=== PATIENT | male | born 1960 | race Hispanic/Latino ===

== ENCOUNTER 2018-03-30 06:41 | Day surgery (SDC) | payer MEDICARE, OTHER ==
[2018-03-29 14:55] VITALS: BMI 35.9
[2018-03-30] MEDS ORDERED: Lidocaine PF 2% (5 ml) Inj (For Cardiac Arrhy) ONE (06:57)
[2018-03-30] MEDS ORDERED: Heparin 2,000 ML IV ONE (06:58)
[2018-03-30] MEDS ORDERED: Iodixanol 320 MG/ML 100 ML BOTTLE IV ONE (06:58)
[2018-03-30] MEDS ORDERED: Iohexol 350mgl/ml 50 ML ONE (06:58)
[2018-03-30] MEDS ORDERED: Nitroglycerin 50mg in D5W 50 MG/250 ML BOTTLE IV ONE (06:58)
[2018-03-30] MEDS ORDERED: Iodixanol 320 MG/ML 200 ML BOTTLE IV ONE (06:58)
[2018-03-30] MEDS ORDERED: Phenylephrine 10 mg/ml Inj ONE (06:58)
[2018-03-30 07:10] LABS: BASO # 0.04 K/mm3 (0.0-2.0); BASO % 0.3 % (0.0-3.0); EOS # 0.2 (0.0-0.7); EOS % 1.5 % (1.5-5.0); GRAN # 6.68 (1.4-6.5); GRAN % 55.6 % (50.0-68.0); LYMPH # 3.8 (1.2-3.4); LYMPH % 31.5 % (22.0-35.0); MEAN CELL VOLUME 84.1 fl (80.0-105.0); MEAN CORPUSCULAR HEMOGLOBIN 28.6 pg (25.0-35.0); MEAN PLATELET VOLUME 10.1 fl (7.0-11.0); MONO # 1.3 (0.1-0.6); MONO % 11.1 % (1.0-6.0); RBC 5.59 10^6/uL (3.5-6.1); RED CELL DISTRIBUTION WIDTH 13.3 % (11.5-14.5)
[2018-03-30 07:15] LABS: INR 0.97; PARTIAL THROMBOPLASTIN TIME 30.7 Seconds (25.1-36.5); PROTHROMBIN TIME 11.2 SECONDS (9.4-12.5)
[2018-03-30 07:19] LABS: BLOOD UREA NITROGEN 18 mg/dL (7-21); CALCIUM 9.4 mg/dL (8.4-10.5); GFR NON-AFRICAN AMERICAN > 60; HDL CHOLESTEROL 24 mg/dL (29-60)
[2018-03-30 07:30] LABS: LDL CHOLESTEROL 65 mg/dL (0-129)
[2018-03-30 07:34] VITALS: RESP 18
[2018-03-30] MEDS ORDERED: Midazolam 2 MG/2 ML VIAL ONE ×2 (07:47→07:59)
[2018-03-30] MEDS ORDERED: Sodium Chloride 0.9% 500 ML IV SCH (09:15)
[2018-03-30] MEDS ORDERED: oxyCODONE 10 mg Immediate Release Tab PO STA (09:15)
--- NOTE | 2018-03-30 09:37 | CARDCATH ---
PROCEDURE DATE: 03/30/2018 HISTORY: The patient is a 57-year-old male who is status post coronary artery bypass surgery one year ago who has been noncompliant with cardiac risk reduction program who presents with exertional shortness of breath. A stress test revealed ischemic changes with a normal LV function. Because of this, cardiac catheterization was recommended. PROCEDURE: Left heart catheterization with coronary arteriography and left ventriculogram with SU angiogram, saphenous vein graft angiogram as well as supra-aortic valvular injection. The right femoral artery was cannulated with a 7-Italian sheath. There were no complications. I performed moderate sedation, which included the presence of an independent trained observer that assisted in monitoring the patient's level of consciousness and physiologic status. After administration of Versed and fentanyl, my intra-service time was 30 minutes. The findings on catheterization revealed a left ventricle that contracted normally. Estimated ejection fraction is 55-60%. His coronary anatomy revealed an occluded left main artery, which extended to an occluded circumflex artery and extended into an occluded LAD. The RCA, which was dominant vessel revealed intimal irregularities without critical lesions. The SU to the LAD was found to be patent and provided good antegrade flow to the mid LAD. The saphenous vein graft to the to the ramus intermedius was found to be patent and provided good antegrade flow. According to the surgical report, circumflex artery could not be bypassed due to the diffuse disease and small vessel size. Supra-aortic valvular injection revealed no aortic insufficiency and no other bypass grafts were noted. Angio-Seal was used to close the femoral artery site. The patient tolerated the procedure well. In summary, the procedure revealed severe triple-vessel CAD with an occluded left main artery. Patent SU to the LAD. Patent SVG to the ramus intermedius. The circumflex artery was not bypassed due to the diffuse nature of the vessel. Diffuse atherosclerosis in the RCA with no critical lesions. Normal LV function. Given these findings, the recommendations will be emphasis on a cardiac risk reduction program and continued medical therapy. The patient has remained in normal sinus rhythm and we will discontinue his Eliquis and start the patient on of aspirin daily. I have discussed with the patient about cardiac risk reduction program. Angel Keyes MD [facility] # [id number]
--- NOTE | 2018-03-30 10:04 | CARD ---
APPROVED REPORT Date of service: 03/30/2018 EKG Measurement Heart [id number] <Conclusion> Sinus bradycardia RVCD Improved repolarization c/w ECG 01/09/16
[2018-03-30 10:58] VITALS: TEMP 98.6
[2018-03-30 13:22] VITALS: O2SAT 96
[2018-03-30 14:34] VITALS: BP 110/64; PULSE 48
== END 2018-03-30 14:56 | disposition home or self-care (01) ==
LOC: CATH 06:41
PROVIDERS: ATTEND Internal Medicine Cardiovascular Disease
DX: I25.10 Atherosclerotic heart disease of native coronary artery without angina pectoris (principal); I10 Essential (primary) hypertension; J44.9 Chronic obstructive pulmonary disease, unspecified; E78.5 Hyperlipidemia, unspecified; Z95.1 Presence of aortocoronary bypass graft
CPT/HCPCS: 36415; 80048; 80061; 85025; 85610; 85730; 86850; 86900; 93005; 93459; 99152; 99153; C1760; C1769 ×2; C1894; C2629; J1644; J2250; J3010; J7040; Q9966; Q9967